=== PATIENT | female | born 1970 | race Caucasian/White ===

== ENCOUNTER 2017-09-21 10:16 | Emergency (ER) | payer OTHER ==
[~2017-09-21] VITALS: Ht 160 cm; Wt 104.3 kg
[~2017-09-21 10:16] MED LIST: AMOX500 PO; Cleocin HCl150 MG PO; ERGO50000 PO; HYDR1TAB94 PO; NAPR220; OXYACE5T PO; OXYC5; PROGESTERONE 30 MG; Percocet 5-3251 EACH PO; SPRINTEC BCP PO; TRAM50 PO
[2017-09-21] MEDS ORDERED: IBUP600 PO (12:12)
== END 2017-09-21 12:35 | disposition home or self-care (01) ==
LOC: ER 10:16
DX: S63.502A Unspecified sprain of left wrist, initial encounter (principal); W22.8XXA Striking against or struck by other objects, initial encounter
CPT/HCPCS: 29125; 73110; 99283

== ENCOUNTER 2018-08-21 20:08 | Emergency (ER) | payer MEDICAID ==
[~2018-08-21] VITALS: Ht 160 cm; Wt 112.5 kg
[~2018-08-21 20:08] MED LIST changes: +IBUP600 PO; +Prednisone10 MG PO
[2018-08-21 20:51] LABS: Influenza A Negative (NEGATIVE); Influenza B Negative (NEGATIVE)
[2018-08-21] MEDS ORDERED: Zithromax250 MG PO (21:29)
[2018-08-21] MEDS ORDERED: BENZ100A PO (21:29)
[2018-08-21] MEDS ORDERED: Prednisone20 MG PO (21:29)
== END 2018-08-21 22:00 | disposition home or self-care (01) ==
LOC: ER 20:08
PROVIDERS: Physician Assistant
DX: J02.9 Acute pharyngitis, unspecified (principal); Z88.5 Allergy status to narcotic agent; Z88.6 Allergy status to analgesic agent
CPT/HCPCS: 87081; 87430; 87804; 99283; J1100

== ENCOUNTER 2018-12-12 17:09 | Emergency (ER) | payer OTHER ==
[~2018-12-12] VITALS: Ht 160 cm; Wt 113.4 kg
[~2018-12-12 17:09] MED LIST changes: +BENZ100A PO; +Prednisone20 MG PO; +Zithromax250 MG PO
[2018-12-12] MEDS ORDERED: KETO10 PO (17:42)
[2018-12-12] MEDS ORDERED: Cyclobenzaprine5 MG PO (17:42)
== END 2018-12-12 17:53 | disposition home or self-care (01) ==
LOC: ER 17:09
DX: S39.012A Strain of muscle, fascia and tendon of lower back, initial encounter (principal); X50.9XXA Other and unspecified overexertion or strenuous movements or postures, initial encounter; Z88.5 Allergy status to narcotic agent; Z79.899 Other long term (current) drug therapy; Z79.52 Long term (current) use of systemic steroids
CPT/HCPCS: 96374; 99283-25; J1885

== ENCOUNTER 2021-05-12 10:59 | Day surgery (SDC) | payer OTHER ==
[~2021-05-12] VITALS: Ht 160 cm; Wt 108.0 kg
[~2021-05-12 10:59] MED LIST changes: +Cyclobenzaprine5 MG PO; +KETO10 PO
[2021-05-12] MEDS ORDERED: PREG25 PO (11:13)
== END 2021-05-12 12:28 | disposition home or self-care (01) ==
LOC: ORSCSDS 10:59
PROVIDERS: Student in an Organized Health Care Education/Training Program
PROC: 0DBM8ZX Excision of Descending Colon, Via Natural or Artificial Opening Endoscopic, Diagnostic (ICD-10-PCS; principal; 2021-05-12 12:15)
PROC: 0DBL8ZX Excision of Transverse Colon, Via Natural or Artificial Opening Endoscopic, Diagnostic (ICD-10-PCS; principal; 2021-05-12 12:15)
DX: R19.5 Other fecal abnormalities (principal); D12.4 Benign neoplasm of descending colon; K64.8 Other hemorrhoids; K64.4 Residual hemorrhoidal skin tags; E66.9 Obesity, unspecified; Z68.41 Body mass index [BMI] 40.0-44.9, adult
CPT/HCPCS: 88305; J2704; J7120

== ENCOUNTER → 2023-01-04 | Outpatient (CLI) | payer OTHER ==
[~2023-01-04] MED LIST changes: +PREG25 PO
[2023-01-04 16:57] LABS: BASOPHILS ABSOLUTE AUTO 0.05 K/mm3 (0.00-0.23); BASOPHILS PERCENT AUTO 1 % (0-2); EOSINOPHILS ABSOLUTE AUTO 0.14 K/mm3 (0.00-0.68); EOSINOPHILS PERCENT AUTO 2 % (0-6); Hematocrit 38.4 % (33.0-51.0); IMMATURE GRAN ABSOLUTE AUTO 0.03 K/mm3 (0.00-0.10); IMMATURE GRAN PERCENT AUTO 0 % (0-1); LYMPHOCYTES ABSOLUTE AUTO 1.83 K/mm3 (0.84-5.20); LYMPHOCYTES PERCENT AUTO 25 % (21-46); MONOCYTES ABSOLUTE AUTO 0.49 K/mm3 (0.16-1.47); MONOCYTES PERCENT AUTO 7 % (4-13); Mean Corpuscular HGB 29.2 pg (26.0-34.0); Mean Corpuscular HGB Conc 33.9 g/dL (31.5-36.5); Mean Corpuscular Volume 86 fL (80-100); Mean Platelet Volume 10.4 fL (9.1-12.4); NEUTROPHILS ABSOLUTE AUTO 4.92 K/mm3 (1.96-9.15); NEUTROPHILS PERCENT AUTO 66 % (41-73); Platelet Count 248 K/mm3 (150-400); RDW Coefficient Variation 13.2 % (11.7-14.2); RDW Standard Deviation 40.8 fL (35.1-46.3); Red Blood Cell Count 4.45 M/mm3 (3.80-5.20); White Blood Cell Count 7.46 K/mm3 (4.00-11.30)
[2023-01-04 17:08] LABS: Albumin, Blood 3.4 g/dL (3.4-5.0); Albumin/Globulin Ratio 0.9 (0.8-1.8); Bilirubin, Total 0.3 mg/dL (0.1-1.0); Bun/Creatinine Ratio 19.5 (12.0-20.0); Calcium, Blood 9.1 mg/dL (8.5-10.1); Creatinine, Blood 0.77 mg/dL (0.40-1.00); Globulin, Blood 3.8 g/dL (2.2-4.0); Potassium, Blood 3.6 mmol/L (3.5-5.5); Total Protein, Blood 7.2 g/dL (6.4-8.2)
== END | disposition home or self-care (01) ==
LOC: LAB SHORT 16:50 → LAB 16:50
PROVIDERS: Physician Assistant
DX: R07.9 Chest pain, unspecified (principal)
CPT/HCPCS: 80053; 83690; 84484; 85025; 85379